=== PATIENT | male | born 1995 | race Two or more races ===

== ENCOUNTER 2018-01-15 10:01 | Outpatient (CLI) | payer OTHER | END 2018-01-15 10:09 | disposition home or self-care (01) | LOC: MRI 10:01 | DX: C49.20 Malignant neoplasm of connective and soft tissue of unspecified lower limb, including hip (principal) | CPT/HCPCS: 73719 ==

== ENCOUNTER 2018-07-08 09:46 | Outpatient (CLI) | payer OTHER | END 2018-07-08 09:51 | disposition home or self-care (01) | LOC: MRI 09:46 | DX: C49.11 Malignant neoplasm of connective and soft tissue of right upper limb, including shoulder (principal) | CPT/HCPCS: 73721 ==

== ENCOUNTER 2019-02-17 11:51 | Outpatient (CLI) | payer OTHER | END 2019-02-17 13:41 | disposition home or self-care (01) | LOC: LAB 11:51 | DX: C49.11 Malignant neoplasm of connective and soft tissue of right upper limb, including shoulder (principal) ==

== ENCOUNTER → 2019-02-18 | Outpatient (CLI) | payer OTHER | END | disposition home or self-care (01) | LOC: MRI 02-17 10:15 | DX: C49.11 Malignant neoplasm of connective and soft tissue of right upper limb, including shoulder (principal) | CPT/HCPCS: 73719 ==

== ENCOUNTER → 2020-06-26 10:02 | Outpatient (CLI) | payer OTHER | END | disposition home or self-care (01) | LOC: LAB 10:02 | PROVIDERS: ATTEND Radiology Diagnostic Radiology | DX: R94.4 Abnormal results of kidney function studies (principal) ==

== ENCOUNTER 2020-06-26 10:47 | Outpatient (CLI) | payer OTHER | END 2020-06-26 11:12 | disposition home or self-care (01) | LOC: MRI 10:47 | PROVIDERS: ATTEND Orthopaedic Surgery | DX: M70.851 Other soft tissue disorders related to use, overuse and pressure, right thigh (principal) | CPT/HCPCS: 73720; 73723 ==

== ENCOUNTER → 2020-06-29 | Outpatient (CLI) | payer OTHER | END | disposition home or self-care (01) | LOC: SONOGRAMA 10:16 | DX: C49.21 Malignant neoplasm of connective and soft tissue of right lower limb, including hip (principal) ==

== ENCOUNTER 2021-07-02 08:32 | Outpatient (CLI) | payer OTHER | END 2021-07-02 08:44 | disposition home or self-care (01) | LOC: LAB 08:32 | DX: C49.22 Malignant neoplasm of connective and soft tissue of left lower limb, including hip (principal) ==

== ENCOUNTER 2021-07-02 09:22 | Outpatient (CLI) | payer OTHER | END 2021-07-02 09:46 | disposition home or self-care (01) | LOC: MRI 09:22 | DX: C49.22 Malignant neoplasm of connective and soft tissue of left lower limb, including hip (principal) | CPT/HCPCS: 72197 ==